=== PATIENT | male | born 1960 | race Caucasian/White ===

== ENCOUNTER → 2016-08-10 | Outpatient (CLI) | payer OTHER, MEDICAID ==
[~2016-08-10] MED LIST: ATOR40TA PO; CETI10TA18 PO; CETI1TAB6 PO; DIAZ5TAB4 PO; FAMO20TA7 PO; HYDR-3307 PO; METH750T87 PO; MORP-52 PO; NICO1PAT TD; OXYC-229 PO; OXYC20TA2 PO; RANI-276 PO; SERT100T PO; lipitor PO; ranitidine PO
== END | disposition home or self-care (01) ==
LOC: STAR 08:17
PROVIDERS: ATTEND Orthopaedic Surgery Orthopaedic Surgery of the Spine
DX: Z01.818 Encounter for other preprocedural examination (principal); M25.552 Pain in left hip; R79.89 Other specified abnormal findings of blood chemistry; F17.200 Nicotine dependence, unspecified, uncomplicated
CPT/HCPCS: 36415; 71020; 81003; 85025; 85610; 85651; 85730; 93005

== ENCOUNTER 2016-08-25 05:56 | Inpatient (IN) | payer OTHER, MEDICAID ==
[2016-08-10 08:51] VITALS: BP 130/84
[~2016-08-25] VITALS: Ht 175.3 cm; Wt 112.8 kg
[2016-08-25] MEDS ORDERED: VANCOMYCIN 1,600 MG in SODIUM CHLORIDE 0.9% 250 ML IV ONE (07:00)
[2016-08-25] MEDS ORDERED: VANCOMYCIN PER PHARMACY MC PRN (07:00)
[2016-08-25] MEDS ORDERED: THROMBIN 20,000 UNIT VIAL TP ONE (07:19)
[2016-08-25] MEDS ORDERED: BUPIVACAINE/PF-EPI 0.5% 1:200K ONE (07:20)
[2016-08-25] MEDS ORDERED: VANCOMYCIN 1,000 MG ONE (07:20)
[2016-08-25] MEDS ORDERED: TRANEXAMIC ACID 100 MG/ML, 10ML ONE (07:20)
[2016-08-25] MEDS ORDERED: LACTATED RINGERS 1,000 ML IV SCH (07:23)
[2016-08-25] MEDS ORDERED: LIDOCAINE 1%, 2ML SQ PRN (07:30)
[2016-08-25] MEDS ORDERED: PHARMACOKINETIC MONITORING MC PRN (08:30)
[2016-08-25] MEDS ORDERED: GLYCOPYRROLATE 0.2MG/1ML ONE (09:02)
[2016-08-25] MEDS ORDERED: ONDANSETRON 2MG/ML, 2ML ONE (09:02)
[2016-08-25] MEDS ORDERED: PROPOFOL 10 MG/ML, 20ML ONE (09:02)
[2016-08-25] MEDS ORDERED: ROCURONIUM 10 MG/ML ONE (09:02)
[2016-08-25] MEDS ORDERED: NEOSTIGMINE 1 MG/ML, 10ML ONE (09:02)
[2016-08-25] MEDS ORDERED: DEXAMETHASONE 4 MG/ML, 1ML ONE (09:02)
[2016-08-25] MEDS ORDERED: METOCLOPRAMIDE 5 MG/ML, 2ML ONE (09:02)
[2016-08-25] MEDS ORDERED: KETAMINE 10 MG/ML, 20ML ONE (09:11)
[2016-08-25] MEDS ORDERED: HYDROmorphone 1 MG/ML, 1ML ONE ×2 (09:11→10:01)
[2016-08-25] MEDS ORDERED: FENTANYL PF 250 MCG/5ML ONE (09:11)
[2016-08-25] MEDS ORDERED: PROMETHAZINE 25 MG/ML, 1ML IV PRN (10:00)
[2016-08-25] MEDS ORDERED: LABETALOL 5MG/ML, 20ML IV PRN (10:00)
[2016-08-25] MEDS ORDERED: MEPERIDINE/PF 25MG/0.5ML IVPush PRN (10:00)
[2016-08-25] MEDS ORDERED: ONDANSETRON 2MG/ML, 2ML IVPush PRN ×2 (10:00→15:30)
[2016-08-25] MEDS ORDERED: hydrALAzine 20 MG/ML, 1ML IV PRN (10:00)
[2016-08-25] MEDS ORDERED: OXYcodone 5 MG/5 ML ORAL.SOL UDC PO PRN (10:00)
[2016-08-25] MEDS ORDERED: MIDAZOLAM 1 MG/ML, 2ML IV PRN (10:00)
[2016-08-25] MEDS ORDERED: HYDROmorphone 2 MG/ML, 1ML ONE ×2 (10:32→11:34)
[2016-08-25] MEDS: FENTANYL PF 100 MCG/2ML IV PRN ×2 (11:30→11:35)
[2016-08-25] MEDS ORDERED: MIDAZOLAM 1 MG/ML, 2ML ONE (11:33)
[2016-08-25] MEDS ORDERED: ACETAMINOPHEN 650 MG/20.3 ML UDC ONE (11:33)
[2016-08-25] MEDS ORDERED: FENTANYL PF 100 MCG/2ML ONE (11:33)
[2016-08-25] MEDS ORDERED: OXYcodone 5 MG/5 ML ORAL.SOL UDC ONE (11:34)
[2016-08-25] MEDS: HYDROmorphone 1 MG/ML, 1ML IV PRN ×4 (11:40→12:25)
[2016-08-25] MEDS ORDERED: ACETAMINOPHEN 325 MG TABLET PO PRN (12:30)
[2016-08-25] MEDS ORDERED: TRANEXAMIC ACID 1,000 MG in SODIUM CHLORIDE 0.9% 100 ML IVPB ONE (13:00)
[2016-08-25 13:05] VITALS: BP 117/76
[2016-08-25] MEDS ORDERED: morphine SULFATE 10 MG/ML, 1ML ONE (14:57)
[2016-08-25] MEDS: morphine SULFATE 10 MG/ML, 1ML IV PRN ×4 (15:00→20:00)
[2016-08-25] MEDS: LORATADINE/PSE 5/120MG TAB.ER.12H PO SCH (15:05)
[2016-08-25] MEDS: OXYcodone IR 5MG TABLET PO PRN ×3 (15:26→21:28)
[2016-08-25] MEDS: DIAZEPAM 5 MG TABLET PO SCH ×2 (15:26→21:27)
[2016-08-25] MEDS ORDERED: DEXAMETHASONE 4 MG/ML, 5ML IV PRN (15:30)
[2016-08-25] MEDS ORDERED: ONDANSETRON ODT 4 MG PO PRN (15:30)
[2016-08-25] MEDS ORDERED: DIPHENHYDRAMINE 25 MG CAPSULE PO PRN (15:30)
[2016-08-25] MEDS ORDERED: SENNA/DOCUSATE TABLET PO PRN (15:30)
[2016-08-25] MEDS ORDERED: DIAZEPAM 5 MG/ML, 10ML VIAL IVPush PRN (15:30)
[2016-08-25] MEDS ORDERED: ACETAMINOPHEN 500 MG TABLET PO PRN (15:30)
[2016-08-25] MEDS ORDERED: PROMETHAZINE 25 MG/ML, 1ML IM PRN (15:30)
[2016-08-25] MEDS ORDERED: SCOPOLAMINE PATCH, 1.5MG PATCH.TD72 TD PRN (15:30)
[2016-08-25] MEDS ORDERED: MAGNESIUM HYDROXIDE 8%, 30ML UDC PO PRN (15:30)
[2016-08-25] MEDS ORDERED: ZOLPIDEM 5MG TABLET PO PRN (15:30)
[2016-08-25] MEDS ORDERED: PREGABALIN 75 MG CAPSULE PO PRN (15:30)
[2016-08-25] MEDS ORDERED: OXYcodone IR 5MG TABLET PO PRN (15:30)
[2016-08-25] MEDS ORDERED: BISACODYL 10 MG SUPP PR PRN (15:30)
[2016-08-25] MEDS ORDERED: DIAZEPAM 5 MG TABLET PO PRN (15:30)
[2016-08-25] MEDS ORDERED: PROMETHAZINE 25 MG SUPP PR PRN (15:30)
[2016-08-25] MEDS ORDERED: DEXAMETHASONE 6 MG in SODIUM CHLORIDE 0.9% 50 ML IV PRN (15:30)
[2016-08-25] MEDS ORDERED: ALUMINUM/MAG/SIMETHICONE 30 ML UDC PO PRN (15:30)
[2016-08-25] MEDS: POTASSIUM CHLORIDE 20 MEQ in D5%-0.45% NACL 1,000 ML IV SCH (16:55)
[2016-08-25] MEDS ORDERED: CEFAZOLIN PMX 2GM/100ML 100 ML IVPB SCH (17:00)
[2016-08-25] MEDS: KETOROLAC 30 MG/1 ML IV PRN (18:30)
[2016-08-25] MEDS: ASPIRIN 325 MG TABLET EC PO SCH (18:30)
[2016-08-25 18:45] VITALS: BP 137/87
[2016-08-25] MEDS ORDERED: VANCOMYCIN 2,000 MG in SODIUM CHLORIDE 0.9% 500 ML IV ONE (20:00)
[2016-08-25] MEDS: SODIUM CHLORIDE FLUSH 10ML SYR IVF SCH (20:03)
[2016-08-25] MEDS: SERTRALINE 100MG TABLET PO SCH (21:27)
[2016-08-25] MEDS: DOCUSATE 100 MG CAPSULE PO SCH (21:28)
[2016-08-25 23:23] VITALS: BP 109/74
[2016-08-26] MEDS: OXYcodone IR 5MG TABLET PO PRN ×8 (00:30→21:46)
[2016-08-26] MEDS ORDERED: CEFAZOLIN PMX 2GM/50ML 50 ML IVPB SCH (01:00)
[2016-08-26] MEDS: KETOROLAC 30 MG/1 ML IV PRN ×4 (01:06→21:47)
[2016-08-26] MEDS: FAMOTIDINE 20 MG TABLET PO PRN ×2 (01:37→21:46)
[2016-08-26 03:00] VITALS: BP 117/67
[2016-08-26] MEDS: DIAZEPAM 5 MG TABLET PO SCH ×4 (03:12→21:46)
[2016-08-26] MEDS: LORATADINE/PSE 5/120MG TAB.ER.12H PO SCH ×2 (03:15→15:26)
[2016-08-26] MEDS: ASPIRIN 325 MG TABLET EC PO SCH ×2 (06:10→18:30)
[2016-08-26] MEDS: POTASSIUM CHLORIDE 20 MEQ in D5%-0.45% NACL 1,000 ML IV SCH ×2 (06:12→17:47)
[2016-08-26] MEDS: morphine SULFATE 10 MG/ML, 1ML IV PRN ×2 (07:09→17:55)
[2016-08-26 07:53] VITALS: BP 113/75
[2016-08-26] MEDS: DOCUSATE 100 MG CAPSULE PO SCH ×2 (09:28→21:46)
[2016-08-26] MEDS: SERTRALINE 100MG TABLET PO SCH ×2 (09:28→21:46)
[2016-08-26] MEDS: SODIUM CHLORIDE FLUSH 10ML SYR IVF SCH ×2 (09:44→21:47)
[2016-08-26] MEDS ORDERED: VANCOMYCIN 2,000 MG in SODIUM CHLORIDE 0.9% 500 ML IV SCH (12:00)
[2016-08-26 13:32] VITALS: BP 108/65
[2016-08-26 18:43] VITALS: BP 120/77
[2016-08-27] MEDS: OXYcodone IR 5MG TABLET PO PRN ×4 (00:47→11:43)
[2016-08-27 01:32] VITALS: BP 96/59
[2016-08-27] MEDS: LORATADINE/PSE 5/120MG TAB.ER.12H PO SCH (03:30)
[2016-08-27] MEDS: DIAZEPAM 5 MG TABLET PO SCH ×2 (03:47→09:01)
[2016-08-27] MEDS: ASPIRIN 325 MG TABLET EC PO SCH (05:58)
[2016-08-27 06:43] VITALS: BP 106/67
[2016-08-27] MEDS: SODIUM CHLORIDE FLUSH 10ML SYR IVF SCH (09:01)
[2016-08-27] MEDS: SERTRALINE 100MG TABLET PO SCH (09:01)
[2016-08-27] MEDS: DOCUSATE 100 MG CAPSULE PO SCH (09:01)
[2016-08-27] MEDS ORDERED: MORP-52 PO (11:54)
[2016-08-27] MEDS ORDERED: OXYC5TAB3 PO (11:55)
[2016-08-27] MEDS ORDERED: CEPH-368 PO (11:57)
[2016-08-27] MEDS ORDERED: ASPI325T92 PO (11:58)
[2016-08-27] MEDS ORDERED: DIAZ10TA PO (11:58)
[2016-08-27 12:17] VITALS: BP 115/71
== END 2016-08-27 12:45 | disposition home or self-care (01) | DRG 470 ==
LOC: ORIP 05:56 → 4NOR 13:04
PROVIDERS: ADMIT Orthopaedic Surgery Orthopaedic Surgery of the Spine; ATTEND Orthopaedic Surgery Orthopaedic Surgery of the Spine
PROC: 0SRB03Z Replacement of Left Hip Joint with Ceramic Synthetic Substitute, Open Approach (ICD-10-PCS; principal; 2016-08-25 10:00)
DX: M25.552 Pain in left hip (principal); F17.210 Nicotine dependence, cigarettes, uncomplicated; F32.9 Major depressive disorder, single episode, unspecified; F41.9 Anxiety disorder, unspecified; Z98.1 Arthrodesis status
CPT/HCPCS: 36415; 72170; 82565; 85025; 86850; 86900; 87081; C1713; J0690; J1100; J1170; J1885; J2250; J2405; J2704; J2710; J3010; J3360; J3370; J3480; J3490; C1776; J2270; J2765; J7040; J7050; J7120